=== PATIENT | male | born 1985 | race Caucasian/White ===

== ENCOUNTER 2017-06-19 15:08 | Inpatient (IN) | payer SELFPAY ==
[~2017-06-19] VITALS: Ht 182.9 cm; Wt 85.0 kg
[2017-06-19] MEDS ORDERED: SODIUM CHLOR 0.9% 1000 ML INJ 1,000 ML IV SCH (15:14)
[2017-06-19] MEDS ORDERED: SODIUM CHLORIDE 0.9% FLUSH 10 ML FLUSH IV FLUSH PRN ×2 (15:15→17:45)
[2017-06-19 15:17] VITALS: BP 132/64; PULSE 144; RESP 47; TEMP 99.3; O2SAT 98
--- NOTE | 2017-06-19 15:29 | PD ---
HPI Chief Complaint: Altered Mental Status Time Seen by Provider: 15:13 Travel History International Travel<30 days: No Contact w/Intl Traveler<30days: No Traveled to known affect area: No History of Present Illness HPI 32-year-old male patient presents to the ER brought in by EMS, apparently had been found facedown on top of an ant hill with and bites all over his neck and back. Patient is disoriented, tachycardic according to EMS, and not able to give much further history. Modifying Factors: None Associated Signs & Symptoms: Altered mental status, tachycardia, ant bites Risk Factors: Unknown [facility] Social History Tobacco Use: Yes Allergies-Medications (Allergen,Severity, Reaction): Coded Allergies: No Known Allergies (Unverified , 06/19/17) Review of Systems Except as stated in HPI: all other systems reviewed are Neg Physical Exam Narrative GENERAL: Well-developed middle-age male patient currently in moderate distress, disoriented and lethargic. SKIN: Focused skin assessment warm/dry. HEAD: Atraumatic. Normocephalic. EYES: Pupils large, equal and round reactive to light. No scleral icterus. No injection or drainage. ENT: No nasal bleeding or discharge. Mucous membranes pink and moist. NECK: Trachea midline. No JVD. CARDIOVASCULAR: Fast and regular rhythm. No murmur appreciated. RESPIRATORY: No accessory muscle use. Clear to auscultation. Breath sounds equal bilaterally. GASTROINTESTINAL: Abdomen soft, non-tender, nondistended. Hepatic and splenic margins not palpable. MUSCULOSKELETAL: No obvious deformities. No clubbing. No cyanosis. No edema. NEUROLOGICAL: Awake and lethargic, disoriented, not following commands. PSYCHIATRIC: Altered mental status, not able to evaluate. Data Data Last Documented VS Vital Signs Date Time Temp Pulse Resp B/P (MAP) Pulse Ox O2 Delivery O2 Flow Rate FiO2 06/19/17 16:21 112 30 100 Room Air 06/19/17 16:00 99.7 06/19/17 15:17 2.00 Orders Orders Electrocardiogram (06/19/17 15:14) Ammonia (06/19/17 15:14) Complete Blood Count With Diff (06/19/17 15:14) Comprehensive Metabolic Panel (06/19/17 15:14) Creatine Kinase (Cpk) (06/19/17 15:14) Prothrombin Time / Inr (Pt) (06/19/17 15:14) Act Partial Throm Time (Ptt) (06/19/17 15:14) Troponin I (06/19/17 15:14) Thyroid Stimulating Hormone (06/19/17 15:14) Urinalysis - C+S If Indicated (06/19/17 15:14) Ct Brain W/O Iv Contrast(Rout) (06/19/17 15:14) Blood Glucose (06/19/17 15:14) Ecg Monitoring (06/19/17 15:14) Iv Access Insert/Monitor (06/19/17 15:14) Cath For Specimen (06/19/17 15:14) Oximetry (06/19/17 15:14) Sodium Chloride 0.9% Flush (Ns Flush) (06/19/17 15:15) Sodium Chlor 0.9% 1000 Ml Inj (Ns 1000 M (06/19/17 15:14) Drug Screen, Random Urine (06/19/17 15:14) Alcohol (Ethanol) (06/19/17 15:14) CKMB (06/19/17 16:07) CKMB% (06/19/17 16:07) Sodium Chlor 0.9% 1000 Ml Inj (Ns 1000 M (06/19/17 17:30) Admit Order (Ed Use Only) (06/19/17 17:40) Labs Laboratory Tests Test 06/19/17 15:45 06/19/17 16:07 Ammonia 25 MCMOL/L White Blood Count 13.5 TH/MM3 Red Blood Count 5.54 MIL/MM3 Hemoglobin 15.8 GM/DL Hematocrit 44.7 % Mean Corpuscular Volume 80.7 FL Mean Corpuscular Hemoglobin 28.5 PG Mean Corpuscular Hemoglobin Concent 35.3 % Red Cell Distribution Width 13.4 % Platelet Count 217 TH/MM3 Mean Platelet Volume 10.1 FL Neutrophils (%) (Auto) 81.6 % Lymphocytes (%) (Auto) 7.9 % Monocytes (%) (Auto) 10.3 % Eosinophils (%) (Auto) 0.0 % Basophils (%) (Auto) 0.2 % Neutrophils # (Auto) 11.0 TH/MM3 Lymphocytes # (Auto) 1.1 TH/MM3 Monocytes # (Auto) 1.4 TH/MM3 Eosinophils # (Auto) 0.0 TH/MM3 Basophils # (Auto) 0.0 TH/MM3 CBC Comment DIFF FINAL Differential Comment Prothrombin Time 14.2 SEC Prothromb Time International Ratio 1.4 RATIO Activated Partial Thromboplast Time 26.4 SEC Urine Color YELLOW Urine Turbidity CLEAR Urine pH 6.5 Urine Specific [place] 1.027 Urine Protein 30 mg/dL Urine Glucose (UA) NEG mg/dL Urine Ketones 40 mg/dL Urine Occult Blood NEG Urine Nitrite NEG Urine Bilirubin NEG Urine Urobilinogen LESS THAN 2.0 MG/DL Urine Leukocyte Esterase NEG Urine RBC LESS THAN 1 /hpf Urine WBC 1 /hpf Urine Sperm RARE Microscopic Urinalysis Comment CATH-CULT NOT IND Blood Urea Nitrogen 23 MG/DL Creatinine 1.76 MG/DL Random Glucose 107 MG/DL Total Protein 7.1 GM/DL Albumin 4.0 GM/DL Calcium Level 8.7 MG/DL Alkaline Phosphatase 49 U/L Aspartate Amino Transf (AST/SGOT) 50 U/L Alanine Aminotransferase (ALT/SGPT) 21 U/L Total Bilirubin 1.8 MG/DL Sodium Level 141 MEQ/L Potassium Level 3.7 MEQ/L Chloride Level 109 MEQ/L Carbon Dioxide Level 14.0 MEQ/L Anion Gap 18 MEQ/L Estimat Glomerular Filtration Rate 45 ML/MIN Total Creatine Kinase 1649 U/L Creatine Kinase MB 7.9 NG/ML Creatine Kinase MB % 0.5 % Troponin I 0.35 NG/ML Thyroid Stimulating Hormone 3rd Gen 4.350 uIU/ML Urine Opiates Screen NEG Urine Barbiturates Screen NEG Urine Amphetamines Screen POS Urine Benzodiazepines Screen NEG Urine Cocaine Screen NEG Urine Cannabinoids Screen NEG Ethyl Alcohol Level LESS THAN 3 MG/DL MDM Medical Decision Making Medical Screen Exam Complete: Yes Emergency Medical Condition: Yes Medical Record Reviewed: Yes Interpretation(s) EKG shows sinus tachycardia rate of 140 bpm. Laboratory Tests Test 06/19/17 15:45 06/19/17 16:07 White Blood Count 13.5 TH/MM3 (4.0-11.0) Neutrophils (%) (Auto) 81.6 % (16.0-70.0) Lymphocytes (%) (Auto) 7.9 % (9.0-44.0) Monocytes (%) (Auto) 10.3 % (0.0-8.0) Neutrophils # (Auto) 11.0 TH/MM3 (1.8-7.7) Monocytes # (Auto) 1.4 TH/MM3 (0-0.9) Prothrombin Time 14.2 SEC (9.8-11.6) Urine Protein 30 mg/dL (NEG-TRACE) Urine Ketones 40 mg/dL (NEG) Urine Sperm RARE (NONE) Blood Urea Nitrogen 23 MG/DL (7-18) Creatinine 1.76 MG/DL (0.60-1.30) Random Glucose 107 MG/DL (74-106) Aspartate Amino Transf (AST/SGOT) 50 U/L (15-37) Total Bilirubin 1.8 MG/DL (0.2-1.0) Chloride Level 109 MEQ/L (98-107) Carbon Dioxide Level 14.0 MEQ/L (21.0-32.0) Anion Gap 18 MEQ/L (5-15) Estimat Glomerular Filtration Rate 45 ML/MIN (>89) Total Creatine Kinase 1649 U/L (39-308) Creatine Kinase MB 7.9 NG/ML (0.5-3.6) Troponin I 0.35 NG/ML (0.02-0.05) Thyroid Stimulating Hormone 3rd Gen 4.350 uIU/ML (0.358-3.740) Urine Amphetamines Screen POS (NEG) Last [address] 06/19/17 1514 Signed Impressions: Service Date/Time: Monday, June 19, 2017 15:36 - CONCLUSION: Normal examination. Jules Sylvester MD Differential Diagnosis Altered mental status: Dehydration versus metabolic issues versus allergic reaction versus sepsis Narrative Course Rhabdomyolysis, dehydration, is positive for cocaine. His troponins are mildly elevated, likely secondary to rate. Patient was given several IV fluid boluses by EMS and in the ER with improvement in tachycardia. He is more awake and oriented in the ER and he admits to have taking cocaine, apparently has recently been released from pen[facility]iary in [place]. At this point, my plan would be to admit him for further IV fluids and treatment for rhabdomyolysis, tachycardia , and evaluation of elevated troponin. Case was discussed with Dr. Dent for admission. Diagnosis Primary Impression: Rhabdomyolysis Additional Impressions: Cocaine abuse Tachyarrhythmia Dehydration Elevated troponin Admitting Information Admitting Physician Requests: Admit Mily Mitchell MD Jun 19, 2017 15:29
--- NOTE | 2017-06-19 15:47 | RADRPT ---
EXAM DATE/TIME: 06/19/2017 15:36 [facility] COMPARISON: No previous studies available for comparison. INDICATIONS : Found face down in a pile of ants, nonverbal. RADIATION DOSE: 40.72 CTDIvol (mGy) MEDICAL HISTORY : Non-responsive. SURGICAL HISTORY : Non-responsive. ENCOUNTER: Initial ACUITY: 1 day PAIN SCALE: 0/10 LOCATION: cranial TECHNIQUE: Multiple contiguous axial images were obtained of the head. Using automated exposure control and adj ustment of the mA and/or kV according to patient size, radiation dose was kept as low as reasonably a chievable to obtain optimal diagnostic quality images. DICOM format image data is available electro nically for review and comparison. FINDINGS: CEREBRUM: The ventricles are normal for age. No evidence of midline shift, mass lesion, hemorrhage or acute in farction. No extra-axial fluid collections are seen. POSTERIOR FOSSA: The cerebellum and brainstem are intact. The 4th ventricle is midline. The cerebellopontine angle i s unremarkable. EXTRACRANIAL: The visualized portion of the orbits is intact. SKULL: The calvaria is intact. No evidence of skull fracture. CONCLUSION: Normal examination. Jules Sylvester MD on June 19, 2017 at 15:44 Board Certified Radiologist. This report was verified electronically.
[2017-06-19 16:00] VITALS: BP 136/64; PULSE 130; RESP 38; TEMP 99.7; O2SAT 100
[2017-06-19 16:21] VITALS: PULSE 112; RESP 30; O2SAT 100
[2017-06-19 16:34] LABS: INTERNATIONAL NORMALIZED RATIO 1.4 RATIO; PROTHROMBIN TIME - PATIENT 14.2 SEC (9.8-11.6)
[2017-06-19 16:37] LABS: BASOPHIL % 0.2 % (0.0-2.0); HEMATOCRIT 44.7 % (39.0-51.0); HEMOGLOBIN 15.8 GM/DL (13.0-17.0); LYMPH % 7.9 % (9.0-44.0); LYMPHOCYTE # 1.1 TH/MM3 (1.0-4.8); MEAN CELL VOLUME 80.7 FL (80.0-100.0); MEAN CORPUSCULAR HEMOGLOBIN 28.5 PG (27.0-34.0); MEAN CORPUSCULAR HGB CONC 35.3 % (32.0-36.0); MEAN PLATELET VOLUME 10.1 FL (7.0-11.0); MONO % 10.3 % (0.0-8.0); MONOCYTE # 1.4 TH/MM3 (0-0.9); NEUT % 81.6 % (16.0-70.0); PLATELET COUNT 217 TH/MM3 (150-450); RED BLOOD COUNT 5.54 MIL/MM3 (4.50-5.90); RED CELL DISTRIBUTION WIDTH 13.4 % (11.6-17.2); WHITE BLOOD COUNT 13.5 TH/MM3 (4.0-11.0)
[2017-06-19 16:50] LABS: AST (GOT) 50 U/L (15-37); BLOOD UREA NITROGEN 23 MG/DL (7-18); CALCIUM 8.7 MG/DL (8.5-10.1); CHLORIDE 109 MEQ/L (98-107); CREATININE 1.76 MG/DL (0.60-1.30); GLOMERULAR FILTRATION RATE 45 ML/MIN (>89); GLUCOSE,RANDOM 107 MG/DL (74-106); SODIUM (NA) 141 MEQ/L (136-145)
[2017-06-19 16:51] LABS: ALT (GPT) 21 U/L (12-78)
[2017-06-19 17:08] LABS: ALKALINE PHOSPHATASE 49 U/L (45-117); TOTAL BILIRUBIN ADULT 1.8 MG/DL (0.2-1.0); TOTAL PROTEIN 7.1 GM/DL (6.4-8.2); TROPONIN I 0.35 NG/ML (0.02-0.05)
[2017-06-19] MEDS ORDERED: SODIUM CHLOR 0.9% 1000 ML INJ 1,000 ML IV ONE (17:30)
[2017-06-19] MEDS ORDERED: NALOXONE HCL 0.4 MG/ML AMP IV PUSH PRN (17:45)
[2017-06-19 18:06] LABS: BILIRUBIN, URINE NEG (NEG); BLOOD, URINE NEG (NEG); GLUCOSE,URINE NEG (NEG); KETONE, URINE 40 mg/dL (NEG); NITRITE,URINE NEG (NEG); PH, URINE 6.5 (5.0-8.5); SPERM, URINE RARE; URINE COLOR YELLOW (YELLW/STRAW); URINE LEUKOCYTE ESTERASE NEG (NEG)
[2017-06-19 19:00] VITALS: BP 138/68; PULSE 117; RESP 24; O2SAT 100
[2017-06-19] MEDS: SODIUM CHLOR 0.9% 1000 ML INJ 1,000 ML IV SCH (19:48)
[2017-06-19] MEDS: SODIUM CHLORIDE 0.9% FLUSH 10 ML FLUSH IV FLUSH SCH (21:00)
[2017-06-19] MEDS ORDERED: ACETAMINOPHEN 325 MG TAB PO PRN (21:30)
[2017-06-19] MEDS ORDERED: ONDANSETRON HCL 4 MG/2 ML VIAL IVP PRN (21:30)
--- NOTE | 2017-06-19 21:30 | HHI.HP ---
[facility] Unknown Admission Diagnosis Amphetamine intoxication/severe dehydration/tachycardia Diagnoses: Travel History International Travel<30 Days: No Contact w/Intl Traveler <30 Da: No Traveled to Known Affected Are: No History of Present Illness 32-year-old male presents to the emergency department by EMS after being found down outside on the top of an ant hill with bites all over his neck and back. Per ED documentation the patient was disoriented upon arrival. During her interview, the patient reports he has no memory of what brought him here and that he just woke up in the hospital. He complains of pain in the bottoms of his feet where he has blisters from walking around and boots. He is cooperative and will answer my questions however does not have any memory of prior events. The patient is exhibiting odd behavior including removing his IVs and using the blood to decorate his face. He denies any chest pain or shortness of breath. No abdominal pain. No nausea/vomiting/diarrhea. No weakness. He is tremulous on exam. Urine drug screen positive for amphetamines. Review of Systems Except as stated in HPI: all other systems reviewed are Neg Past Family Social History Past Medical History None Past Surgical History Hernia repair Allergies: Coded Allergies: No Known Allergies (Unverified , 06/19/17) Family History Negative for CAD/DM Social History Patient reports he drinks beer occasionally. He denies tobacco or any recent illicit drug use. He states he used to use drugs but will not tell me when his last use was or what substances he uses. Physical Exam Vital Signs Vital Signs Date Time Temp Pulse Resp B/P (MAP) Pulse Ox O2 Delivery O2 Flow Rate FiO2 06/19/17 16:21 112 30 100 Room Air 06/19/17 16:00 99.7 130 38 136/64 (88) 100 Room Air 06/19/17 15:17 Nasal Cannula 2.00 06/19/17 15:17 99.3 144 47 132/64 (86) 98 Room Air 2.00 Physical Exam GENERAL: male sitting up in bed, tremulous, with blood streaks under his eyes SKIN: Erythema of the face, chest and back without swelling or tenderness HEAD: Atraumatic. Normocephalic. No temporal or scalp tenderness. EYES: Pupils equal round and reactive. Extraocular motions intact. No scleral icterus. No injection or drainage. ENT: Nose without bleeding, purulent drainage or septal hematoma. Throat without erythema, tonsillar hypertrophy or exudate. Uvula midline. Airway patent. NECK: Trachea midline. No JVD or lymphadenopathy. Supple, nontender, no meningeal signs. CARDIOVASCULAR: Regular rate and rhythm without murmurs, gallops, or rubs. RESPIRATORY: Clear to auscultation. Breath sounds equal bilaterally. No wheezes , rales, or rhonchi. GASTROINTESTINAL: Abdomen soft, non-tender, nondistended. No hepato-splenomegaly , or palpable masses. No guarding. MUSCULOSKELETAL: Extremities without clubbing, cyanosis, or edema. No joint tenderness, effusion, or edema noted. No calf tenderness. NEUROLOGICAL: Awake and alert. Cranial nerves II through XII intact. Motor and sensory grossly within normal limits. Pressured speech. Laboratory Laboratory Tests Test 06/19/17 15:45 06/19/17 16:07 Ammonia 25 White Blood Count 13.5 Red Blood Count 5.54 Hemoglobin 15.8 Hematocrit 44.7 Mean Corpuscular Volume 80.7 Mean Corpuscular Hemoglobin 28.5 Mean Corpuscular Hemoglobin Concent 35.3 Red Cell Distribution Width 13.4 Platelet Count 217 Mean Platelet Volume 10.1 Neutrophils (%) (Auto) 81.6 Lymphocytes (%) (Auto) 7.9 Monocytes (%) (Auto) 10.3 Eosinophils (%) (Auto) 0.0 Basophils (%) (Auto) 0.2 Neutrophils # (Auto) 11.0 Lymphocytes # (Auto) 1.1 Monocytes # (Auto) 1.4 Eosinophils # (Auto) 0.0 Basophils # (Auto) 0.0 CBC Comment DIFF FINAL Differential Comment Prothrombin Time 14.2 Prothromb Time International Ratio 1.4 Activated Partial Thromboplast Time 26.4 Urine Color YELLOW Urine Turbidity CLEAR Urine pH 6.5 Urine Specific [place] 1.027 Urine Protein 30 Urine Glucose (UA) NEG Urine Ketones 40 Urine Occult Blood NEG Urine Nitrite NEG Urine Bilirubin NEG Urine Urobilinogen LESS THAN 2.0 Urine Leukocyte Esterase NEG Urine RBC LESS THAN 1 Urine WBC 1 Urine Sperm RARE Microscopic Urinalysis Comment CATH-CULT NOT IND Blood Urea Nitrogen 23 Creatinine 1.76 Random Glucose 107 Total Protein 7.1 Albumin 4.0 Calcium Level 8.7 Alkaline Phosphatase 49 Aspartate Amino Transf (AST/SGOT) 50 Alanine Aminotransferase (ALT/SGPT) 21 Total Bilirubin 1.8 Sodium Level 141 Potassium Level 3.7 Chloride Level 109 Carbon Dioxide Level 14.0 Anion Gap 18 Estimat Glomerular Filtration Rate 45 Total Creatine Kinase 1649 Creatine Kinase MB 7.9 Creatine Kinase MB % 0.5 Troponin I 0.35 Thyroid Stimulating Hormone 3rd Gen 4.350 Urine Opiates Screen NEG Urine Barbiturates Screen NEG Urine Amphetamines Screen POS Urine Benzodiazepines Screen NEG Urine Cocaine Screen NEG Urine Cannabinoids Screen NEG Ethyl Alcohol Level LESS THAN 3 Result Diagram: 06/19/17 1607 06/19/17 1607 Caprinbooker VTE Risk Assessment Caprini VTE Risk Assessment: No/Low Risk (score <= 1) Caprini Risk Assessment Model Point Value = 1 Point Value = 2 Point Value = 3 Point Value = 5 Age 41-60 Minor surgery BMI > 25 kg/m2 Swollen legs Varicose veins or History of unexplained or recurrent spontaneous Oral contraceptives or hormone replacement Sepsis (< 1 month) Serious lung disease, including pneumonia (< 1 month) Abnormal pulmonary function Acute myocardial infarction Congestive heart failure (< 1 month) History of inflammatory bowel disease Medical patient at bed rest Age 61-74 Arthroscopic surgery Major open surgery (> 45 min) Laparoscopic surgery (> 45 min) Malignancy Confined to bed (> 72 hours) Immobilizing plaster cast Central venous access Age >= 75 History of VTE Family history of VTE Factor V Leiden Prothrombin [id number] Lupus anticoagulant Anticardiolipin antibodies Elevated serum homocysteine Heparin-induced thrombocytopenia Other congenital or acquired thrombophilia Stroke (< 1 month) Elective arthroplasty Hip, pelvis, or leg fracture Acute spinal cord injury (< 1 month) Prophylaxis Regimen Total Risk Factor Score Risk Level Prophylaxis Regimen 0-1 Low Early ambulation 2 Moderate Order ONE of the following: *Sequential Compression Device (SCD) *Heparin 5000 units SQ BID 3-4 Higher Order ONE of the following medications: *Heparin 5000 units SQ TID *Enoxaparin/Lovenox 40 mg SQ daily (WT < 150 kg, CrCl > 30 mL/min) *Enoxaparin/Lovenox 30 mg SQ daily (WT < 150 kg, CrCl > 10-29 mL/min) *Enoxaparin/Lovenox 30 mg SQ BID (WT < 150 kg, CrCl > 30 mL/min) AND/OR *Sequential Compression Device (SCD) 5 or more Highest Order ONE of the following medications: *Heparin 5000 units SQ TID (Preferred with Epidurals) *Enoxaparin/Lovenox 40 mg SQ daily (WT < 150 kg, CrCl > 30 mL/min) *Enoxaparin/Lovenox 30 mg SQ daily (WT < 150 kg, CrCl > 10-29 mL/min) *Enoxaparin/Lovenox 30 mg SQ BID (WT < 150 kg, CrCl > 30 mL/min) AND *Sequential Compression Device (SCD) Assessment and Plan Assessment and Plan Assessment/plan: 1. Rhabdo CK 1649 IV fluid hydration Monitor renal function 2. Acute kidney injury BUN/creatinine 23/1.76 Likely secondary to dehydration Plan as above 3. Altered mental status Unclear if drug-induced or underlying psychotic disorder Psychiatry consulted, appreciate recommendations 4. Substance abuse Urine drug screen positive for amphetamine Cessation counseling provided Patient denies the use of all illicit drugs FEN Regular diet Electrolytes: monitor and replete prn NS at 200 cc/hr Sherly Lea MD Jun 19, 2017 21:30
[2017-06-19 22:53] LABS: TROPONIN I 0.44 NG/ML (0.02-0.05)
[2017-06-19] MEDS ORDERED: LORazepam 2 MG/ML VIAL IV PUSH ONE (23:00)
[2017-06-20] MEDS ORDERED: diphenhydrAMINE HCL 50 MG/ML VIAL ONE (03:12)
[2017-06-20] MEDS ORDERED: HALOPERIDOL LACTATE 5 MG/ML AMP IM ONE ×2 (03:15→04:15)
[2017-06-20] MEDS ORDERED: ZIPRASIDONE MESYLATE 20 MG VIAL IM ONE (03:15)
[2017-06-20] MEDS ORDERED: LORazepam 2 MG/ML VIAL IM ONE (03:15)
[2017-06-20] MEDS ORDERED: diphenhydrAMINE HCL 50 MG/ML VIAL IM ONE (03:15)
[2017-06-20] MEDS: SODIUM CHLOR 0.9% 1000 ML INJ 1,000 ML IV SCH (03:54)
[2017-06-20] MEDS ORDERED: HALOPERIDOL LACTATE 5 MG/ML AMP IM PRN (04:15)
[2017-06-20] MEDS ORDERED: LORazepam 2 MG/ML VIAL IV PUSH PRN (04:15)
[2017-06-20 06:01] LABS: AUTOMATED NEUTROPHIL # 9.8 TH/MM3 (1.8-7.7); BASOPHIL # 0.1 TH/MM3 (0-0.2); BASOPHIL % 0.6 % (0.0-2.0); HEMATOCRIT 46.3 % (39.0-51.0); HEMOGLOBIN 16.1 GM/DL (13.0-17.0); LYMPH % 18.5 % (9.0-44.0); LYMPHOCYTE # 2.6 TH/MM3 (1.0-4.8); MEAN CORPUSCULAR HEMOGLOBIN 28.9 PG (27.0-34.0); MEAN CORPUSCULAR HGB CONC 34.8 % (32.0-36.0); MEAN PLATELET VOLUME 10.3 FL (7.0-11.0); MONO % 10.7 % (0.0-8.0); MONOCYTE # 1.5 TH/MM3 (0-0.9); NEUT % 70.2 % (16.0-70.0); PLATELET COUNT 191 TH/MM3 (150-450); RED BLOOD COUNT 5.58 MIL/MM3 (4.50-5.90); RED CELL DISTRIBUTION WIDTH 13.5 % (11.6-17.2); WHITE BLOOD COUNT 13.9 TH/MM3 (4.0-11.0)
[2017-06-20 06:29] LABS: ALBUMIN 4.1 GM/DL (3.4-5.0); AST (GOT) 81 U/L (15-37); BICARBONATE 23.4 MEQ/L (21.0-32.0); BLOOD UREA NITROGEN 17 MG/DL (7-18); CALCIUM 8.3 MG/DL (8.5-10.1); CHLORIDE 104 MEQ/L (98-107); GLOMERULAR FILTRATION RATE 54 ML/MIN (>89); GLUCOSE,RANDOM 95 MG/DL (74-106); SODIUM (NA) 139 MEQ/L (136-145)
[2017-06-20 06:31] LABS: ALT (GPT) 29 U/L (12-78)
[2017-06-20 06:33] LABS: ALKALINE PHOSPHATASE 54 U/L (45-117); TOTAL BILIRUBIN ADULT 1.3 MG/DL (0.2-1.0); TOTAL PROTEIN 7.5 GM/DL (6.4-8.2)
[2017-06-20 06:41] LABS: TROPONIN I 0.49 NG/ML (0.02-0.05)
[2017-06-20 08:00] VITALS: BP 130/66; PULSE 85; RESP 20; TEMP 97.6; O2SAT 97
[2017-06-20] MEDS: SODIUM CHLORIDE 0.9% FLUSH 10 ML FLUSH IV FLUSH SCH ×2 (09:00→20:32)
[2017-06-20] MEDS: D5-1/2 NS + KCL 40 MEQ INJ 1,000 ML IV SCH ×2 (10:30→20:34)
--- NOTE | 2017-06-20 11:02 | HHI.PR ---
Subjective Remarks The patient was asleep but would wake up to questions and answer appropriately with short answers. He denied any chest pain or shortness of breath. He was unable to elaborate further on his condition. Discussed with nursing and psychiatry. Objective Vitals Vital Signs Date Time Temp Pulse Resp B/P (MAP) Pulse Ox O2 Delivery O2 Flow Rate FiO2 06/20/17 08:00 97.6 85 20 130/66 (87) 97 06/19/17 19:00 117 24 138/68 (91) 100 Room Air 06/19/17 16:21 112 30 100 Room Air 06/19/17 16:00 99.7 130 38 136/64 (88) 100 Room Air 06/19/17 15:17 Nasal Cannula 2.00 06/19/17 15:17 99.3 144 47 132/64 (86) 98 Room Air 2.00 I/O 06/19/17 06/19/17 06/19/17 06/20/17 06/20/17 06/20/17 07:00 15:00 23:00 07:00 15:00 23:00 Intake Total 1000 ml Balance 1000 ml Intake IV Total 1000 ml Result Diagram: 06/20/17 0511 06/20/17 0511 Imaging Last Impressions Head CT 06/19/17 1514 Signed Impressions: Service Date/Time: Monday, June 19, 2017 15:36 - CONCLUSION: Normal examination. Jules Sylvester MD Objective Remarks GENERAL: Resting comfortably. SKIN: Erythema of the face, chest and back without swelling or tenderness HEAD: Atraumatic. Normocephalic. No temporal or scalp tenderness. EYES: Pupils equal round and reactive. Extraocular motions intact. No scleral icterus. No injection or drainage. ENT: Nose without bleeding, purulent drainage or septal hematoma. Throat without erythema, tonsillar hypertrophy or exudate. Uvula midline. Airway patent. NECK: Trachea midline. No JVD or lymphadenopathy. Supple, nontender, no meningeal signs. CARDIOVASCULAR: Regular rate and rhythm without murmurs, gallops, or rubs. RESPIRATORY: Clear to auscultation. Breath sounds equal bilaterally. No wheezes , rales, or rhonchi. GASTROINTESTINAL: Abdomen soft, non-tender, nondistended. No hepato-splenomegaly , or palpable masses. No guarding. MUSCULOSKELETAL: Extremities without clubbing, cyanosis, or edema. No joint tenderness, effusion, or edema noted. NEUROLOGICAL: Awake and alert. Cranial nerves II through XII intact. Motor and sensory grossly within normal limits. PSYCH: Flat affect. Medications and IVs Current Medications Medications (Trade) Dose Ordered Sig/Marely Route Start Time Stop Time Status Last Admin (NS Flush) 2 ml UNSCH PRN IV FLUSH 06/19/17 17:45 (NS Flush) 2 ml BID IV FLUSH 06/19/17 21:00 (Narcan Inj) 0.4 mg UNSCH PRN IV PUSH 06/19/17 17:45 (Tylenol) 650 mg Q4H PRN PO 06/19/17 21:30 (Zofran Inj) 4 mg Q6H PRN IVP 06/19/17 21:30 (Haldol Inj) 5 mg Q4H PRN IM 06/20/17 04:15 (Ativan Inj) 1 mg Q2H PRN IV PUSH 06/20/17 04:15 Potassium Chloride/Dextrose/ Sod Cl 1,000 ml @ 150 mls/hr Q6H40M IV 06/20/17 10:30 A/P Assessment and Plan Rhabdo CPK has been increasing. - IV fluid hydration. - Monitor renal function. Elevated trops EKG without acute ischemia. Likely s/t rhabdo. - trend trops and EKGs. - telemetry. - treat underlying rhabdo. Acute kidney injury BUN/creatinine 23/1.76 on admission. Improving. - IVFs. - avoid nephrotoxins. Hypokalemia Potassium level was 3. - IVFs with KCl. - check magnesium level. Altered mental status Unclear if drug-induced or underlying psychotic disorder. Psychiatry consulted, appreciate recommendations. - admit to psychiatry 2700 unit once medically stable. - Blake Act placed by psychiatry. Substance abuse Urine drug screen positive for amphetamine. Cessation counseling provided. - supportive care. Leukocytosis May be a stress reaction. UA unremarkable. - check CXR. - follow blood cultures. PPx: Eitan Begum DO Jun 20, 2017 11:02
--- NOTE | 2017-06-20 11:12 | RADRPT ---
EXAM DATE/TIME: 06/20/2017 10:29 [facility] COMPARISON: No previous studies available for comparison. INDICATIONS : Evalaute for pneumonia. MEDICAL HISTORY : None. SURGICAL HISTORY : None. ENCOUNTER: Subsequent ACUITY: 2 days PAIN SCORE: 0/10 LOCATION: Bilateral chest FINDINGS: A single view of the chest demonstrates the lungs to be symmetrically aerated without evidence of mas s, infiltrate or effusion. The cardiomediastinal contours are unremarkable. Osseous structures are intact. CONCLUSION: Normal examination. Jules Sylvester MD on June 20, 2017 at 11:09 Board Certified Radiologist. This report was verified electronically.
[2017-06-20 12:00] VITALS: BP_SYST 128; BP_SYST 130; BP_DIAS 66; BP_DIAS 80; PULSE 79; PULSE 85; RESP 20; TEMP 96.8; TEMP 97.6; O2SAT 96; O2SAT 97
[2017-06-20] MEDS: BENZTROPINE MESYLATE 1 MG TAB PO SCH ×2 (14:15→20:32)
[2017-06-20] MEDS: HALOPERIDOL 5 MG TAB PO SCH ×2 (14:15→20:32)
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
[2017-06-20 16:00] VITALS: BP 157/91; PULSE 83; RESP 20; TEMP 99.8; O2SAT 100
--- NOTE | 2017-06-20 16:39 | EKG ---
Date Performed: 06/19/2017 Time Performed: 21:56:23 PTAGE: 32 years EKG: SINUS TACHYCARDIA INDETERMINATE AXIS ABNORMAL RHYTHM ECG PREVIOUS TRACING 06/19/17 Since the previous tracing, no significant change noted DOCTOR: Pako Silverio Interpretating Date/Time 06/20/2017 16:34:33
--- NOTE | 2017-06-20 16:39 | EKG ---
Date Performed: 06/19/2017 Time Performed: 15:21:20 PTAGE: 32 years EKG: SINUS TACHYCARDIA WITH SHORT MI INTERVAL INDETERMINATE AXIS ABNORMAL RHYTHM ECG NO PREVIOUS TRACING DOCTOR: Pako Silverio Interpretating Date/Time 06/20/2017 16:34:11
[2017-06-20 21:07] VITALS: BP 118/66; PULSE 85; RESP 18; TEMP 98; O2SAT 97
[2017-06-20 23:53] VITALS: BP 106/65; PULSE 74; RESP 16; TEMP 98.6; O2SAT 97
[2017-06-21] MEDS: D5-1/2 NS + KCL 40 MEQ INJ 1,000 ML IV SCH ×2 (00:26→06:31)
[2017-06-21 03:51] VITALS: BP 116/57; PULSE 69; RESP 16; TEMP 97.7; O2SAT 98
[2017-06-21 07:43] LABS: HEMATOCRIT 41.9 % (39.0-51.0); HEMOGLOBIN 14.8 GM/DL (13.0-17.0); MEAN CELL VOLUME 83.2 FL (80.0-100.0); MEAN CORPUSCULAR HEMOGLOBIN 29.3 PG (27.0-34.0); MEAN CORPUSCULAR HGB CONC 35.2 % (32.0-36.0); PLATELET COUNT 124 TH/MM3 (150-450); RED BLOOD COUNT 5.04 MIL/MM3 (4.50-5.90); RED CELL DISTRIBUTION WIDTH 13.5 % (11.6-17.2); WHITE BLOOD COUNT 6.5 TH/MM3 (4.0-11.0)
[2017-06-21 07:54] VITALS: BP 116/80; PULSE 63; RESP 20; TEMP 98.2; O2SAT 97
[2017-06-21 08:07] LABS: BICARBONATE 25.1 MEQ/L (21.0-32.0); CALCIUM 8.2 MG/DL (8.5-10.1); CREATININE 1.14 MG/DL (0.60-1.30); DIRECT BILIRUBIN ADULT 0.2 MG/DL (0.0-0.2); MAGNESIUM 2.1 MG/DL (1.5-2.5)
[2017-06-21] MEDS: HALOPERIDOL 5 MG TAB PO SCH (08:11)
[2017-06-21] MEDS: BENZTROPINE MESYLATE 1 MG TAB PO SCH (08:11)
[2017-06-21] MEDS: SODIUM CHLORIDE 0.9% FLUSH 10 ML FLUSH IV FLUSH SCH (08:12)
[2017-06-21 08:25] LABS: INDIRECT BILIRUBIN 0.6 MG/DL (0.0-0.8); TOTAL BILIRUBIN ADULT 0.8 MG/DL (0.2-1.0); TOTAL PROTEIN 6.1 GM/DL (6.4-8.2); TROPONIN I 0.09 NG/ML (0.02-0.05)
[2017-06-21] MEDS ORDERED: [UNRECOGNIZED DRUG - CODE] IV (11:03)
[2017-06-21] MEDS ORDERED: HALO5TAB PO (11:03)
[2017-06-21] MEDS ORDERED: SM A2CRE3 TOPICAL (11:03)
[2017-06-21] MEDS ORDERED: Benztropine PO (11:03)
[2017-06-21] MEDS ORDERED: LORazepam INJ IV PUSH (11:03)
--- NOTE | 2017-06-21 11:04 | HHI.DCPOC ---
Discharge Care Plan Diagnosis: (1) Dehydration (2) Rhabdomyolysis (3) Elevated troponin (4) Unspecified psychosis Goals to Promote Your Health * To prevent worsening of your condition and complications * To maintain your health at the optimal level Directions to Meet Your Goals Take your medications as prescribed Follow your dietary instruction Follow activity as directed Keep your appointments as scheduled Take your immunizations and boosters as scheduled If your symptoms worsen call your PCP, if no PCP go to Urgent Care Center or Emergency Room Smoking is Dangerous to Your Health. Avoid second hand smoke Call the 24-hour hour crisis hotline for domestic abuse at Eitan Valencia DO Jun 21, 2017 11:04
--- NOTE | 2017-06-21 11:13 | HHI.PR ---
Subjective Remarks The patient was resting comfortably. He was wondering how long he would have to stay in the hospital. He said he had a lot of bites from the ants but they were not painful. He said he usually drinks pretty heavily. He smokes cigarettes. He does use drugs. Objective Vitals Vital Signs Date Time Temp Pulse Resp B/P (MAP) Pulse Ox O2 Delivery O2 Flow Rate FiO2 06/21/17 07:54 98.2 63 20 116/80 (92) 97 06/21/17 03:51 97.7 69 16 116/57 (76) 98 06/20/17 23:53 98.6 74 16 106/65 (79) 97 06/20/17 21:07 98.0 85 18 118/66 (83) 97 06/20/17 16:00 99.8 83 20 157/91 (113) 100 06/20/17 12:00 97.6 85 20 130/66 (87) 97 06/20/17 12:00 96.8 79 20 128/80 (96) 96 Result Diagram: 06/21/17 0713 06/21/17 0713 Imaging Last Impressions Chest X-Ray 06/20/17 0000 Signed Impressions: Service Date/Time: May 10:29 - CONCLUSION: Normal examination. Jules Sylvester MD Head CT 06/19/17 1514 Signed Impressions: Service Date/Time: Monday, June 19, 2017 15:36 - CONCLUSION: Normal examination. Jules Sylvester MD Objective Remarks GENERAL: Resting comfortably. SKIN: Numerous bite porras on under right axilla and on the arms. HEAD: Atraumatic. Normocephalic. No temporal or scalp tenderness. EYES: Pupils equal round and reactive. Extraocular motions intact. No scleral icterus. No injection or drainage. ENT: Nose without bleeding, purulent drainage or septal hematoma. Throat without erythema, tonsillar hypertrophy or exudate. Uvula midline. Airway patent. NECK: Trachea midline. No JVD or lymphadenopathy. Supple, nontender, no meningeal signs. CARDIOVASCULAR: Regular rate and rhythm without murmurs, gallops, or rubs. RESPIRATORY: Clear to auscultation. Breath sounds equal bilaterally. No wheezes , rales, or rhonchi. GASTROINTESTINAL: Abdomen soft, non-tender, nondistended. No hepato-splenomegaly , or palpable masses. No guarding. MUSCULOSKELETAL: Extremities without clubbing, cyanosis, or edema. No joint tenderness, effusion, or edema noted. NEUROLOGICAL: Awake and alert. Cranial nerves II through XII intact. Motor and sensory grossly within normal limits. PSYCH: Calm. Medications and IVs Current Medications Medications (Trade) Dose Ordered Sig/Marely Route Start Time Stop Time Status Last Admin (NS Flush) 2 ml UNSCH PRN IV FLUSH 06/19/17 17:45 (NS Flush) 2 ml BID IV FLUSH 06/19/17 21:00 06/20/17 20:32 (Narcan Inj) 0.4 mg UNSCH PRN IV PUSH 06/19/17 17:45 (Tylenol) 650 mg Q4H PRN PO 06/19/17 21:30 (Zofran Inj) 4 mg Q6H PRN IVP 06/19/17 21:30 (Haldol Inj) 5 mg Q4H PRN IM 06/20/17 04:15 (Ativan Inj) 1 mg Q2H PRN IV PUSH 06/20/17 04:15 Potassium Chloride/Dextrose/ Sod Cl 1,000 ml @ 150 mls/hr Q6H40M IV 06/20/17 10:30 06/21/17 06:31 (Haldol) 5 mg BID PO 06/20/17 14:15 06/21/17 08:11 (Cogentin) 1 mg Q12HR PO 06/20/17 14:15 06/21/17 08:11 (Benadryl 2% Cream) 1 applic BID TOPICAL 06/21/17 11:00 UNV A/P Assessment and Plan Rhabdo CPK was over 4000. Currently improving. - Continue IV fluid hydration. - Monitor renal function. Elevated trops EKG without acute ischemia. Likely s/t rhabdo. Seems resolved. - telemetry. - treat underlying rhabdo. Acute kidney injury BUN/creatinine 23/1.76 on admission. Improving. - IVFs. - avoid nephrotoxins. Hypokalemia Potassium level was 3. - IVFs with KCl. - ADAT. Altered mental status Unclear if drug-induced or underlying psychotic disorder. Psychiatry consulted, appreciate recommendations. - discharge to med psych. - Blake Act placed by psychiatry. Substance abuse Urine drug screen positive for amphetamine. He also smokes and drinks excessively. Cessation counseling provided. - supportive care. - CIWA protocol. Leukocytosis May be a stress reaction. UA and CXR unremarkable. Resolved. - follow blood cultures. Thrombocytopenia Mild. - follow CBC. Ant bites Not too bothersome at this time. - Benadryl cream. PPx: SCDs Discharge Planning D/c to med-psych unit Eitan Valencia DO Jun 21, 2017 11:13
[2017-06-21] MEDS ORDERED: diphenhydrAMINE HCL 2%/ZINC ACETATE 0.1% CREAM 30 APPLIC/30 GM TUBE TOPICAL SCH (12:00)
== END 2017-06-21 14:20 | disposition left against medical advice (07) | DRG 558 ==
LOC: NEPE 15:08 → EDBD 15:08 → NEDA 17:41 → NEPGCP 22:15 → OBSVTOIN 06-20 10:54
PROVIDERS: ADMIT Hospitalist; ATTEND Hospitalist
DX: M62.82 Rhabdomyolysis (principal); N17.9 Acute kidney failure, unspecified; D69.6 Thrombocytopenia, unspecified; E86.0 Dehydration; F15.129 Other stimulant abuse with intoxication, unspecified; S20.469A Insect bite (nonvenomous) of unspecified back wall of thorax, initial encounter; S10.96XA Insect bite of unspecified part of neck, initial encounter; E87.6 Hypokalemia; D72.829 Elevated white blood cell count, unspecified; Z78.1 Physical restraint status
CPT/HCPCS: 70450; 71045; 80048; 80053; 80076; 80307; 81001; 82140; 82550; 82552; 83735; 84443; 84484; 85025; 85027; 85610; 85730; 87040; 93005; J1200; J1630; J2060; J3480; J7030